=== PATIENT | female | born 1980 | race Caucasian/White ===

== ENCOUNTER → 2017-05-13 | Outpatient (CLI) | payer BC ==
--- NOTE | 2017-05-13 16:04 | PCVCIMAG ---
APPROVED REPORT Study performed: 05/13/2017 14:03:29 EXAM: Comprehensive 2D, Doppler, and color-flow Echocardiogram Patient Location: Echo lab Status: routine Other Information Study Quality: Technically Limited Indications PSVT. Syncope 2D Dimensions LVEF(%): 47.27 (>50%) IVSd: 7.41 (7-11mm)LVOT Diam: 16.48 (18-24mm) LVDd: 30.25 mm PWd: 6.86 (7-11mm)Ascending Ao: 27.88 (22-36mm) LVDs: 23.36 (25-40mm) Left Atrium: 18.32 (27-40mm) Aortic Root: 23.15 mm Mcnamara's LVEF: 47.27 % Volumes Left Atrial Volume (Systole) Single Plane 4CH: 13.11 mLSingle Plane 2CH: 16.67 mL Aortic Valve AoV Peak Gabo.: 1.18 m/s AO Peak Gr.: 5.59 mmHgLVOT Max P.41 mmHg LVOT Max V: 0.92 m/s DIANA Vmax: 1.67 cm2 Pulmonary Valve PV Peak Gr.: 2.05 mmHg Pulmonary Vein P Vein S: 0.63 m/sP Vein A: 0.29 m/s P Vein D: 0.41 m/sP Vein A Dur.: 65.7 msec P Vein S/D Ratio: 1.54 Left Ventricle The left ventricle is normal size. There is normal LV segmental wall motion. There is normal left ventricular wall thickness. Left ventricular systolic function is normal. The left ventricular ejection fraction is within the normal range. LVEF is 55-60%. The left ventricular diastolic function is normal. Right Ventricle The right ventricle is normal size. The right ventricular systolic function is normal. Atria The left atrium size is normal. The right atrium size is normal. Aortic Valve The aortic valve is normal in structure. No aortic regurgitation is present. There is no aortic valvular stenosis. Mitral Valve The mitral valve is normal in structure. There is no mitral valve regurgitation noted. No evidence of mitral valve stenosis. Tricuspid Valve The tricuspid valve is normal in structure. There is no tricuspid valve regurgitation noted. Pulmonic Valve The pulmonary valve is normal in structure. There is no pulmonic valvular regurgitation. Great Vessels The aortic root is normal in size. IVC is normal in size and collapses with >50% inspiration Pericardium There is no pericardial effusion. <Conclusion> Left ventricular systolic function is normal. There is normal LV segmental wall motion. LVEF is 55-60%. The aortic valve is normal in structure. No aortic regurgitation or stenosis. The mitral valve is normal in structure. No mitral valve regurgitation Pulmonary artery pressure could not be reliably ascertained There is no pericardial effusion.
== END ==
LOC: PCVCIMAG 13:51
PROVIDERS: ATTEND Internal Medicine
DX: I47.1 Supraventricular tachycardia (principal); E78.5 Hyperlipidemia, unspecified; J45.909 Unspecified asthma, uncomplicated
CPT/HCPCS: 93017; 93306